=== PATIENT | female | born 1980 | race Caucasian/White ===

== ENCOUNTER 2018-12-01 15:06 | Emergency (ER) | payer SELFPAY ==
[~2018-12-01] VITALS: Ht 170.2 cm; Wt 69.6 kg
[2018-12-01 15:09] VITALS: BP 151/66
[2018-12-01] MEDS ORDERED: ZIPRASIDONE 20 MG INJ IM ONE (15:30)
--- NOTE | 2018-12-01 15:44 | NUR ---
PER DR. MENA PT HAS BEEN MEDICALLY CLEARED BY HIM. DR. MENA REQUESTING [facility] [employer] PT OUT OF THE DEPARTMENT STATING THAT THE PT IS VERBALLY ABUSIVE AND REFUSING ANY FURTHER MEDICAL ASSESSMENT. SECURITY MADE AWARE, AT BEDSIDE.
[2018-12-01 15:59] LABS: BASOPHILS # (AUTO) 0.05 x10^3/uL (0-0.1); BASOPHILS % (AUTO) 1 % (0-1); EOSINOPHILS # (AUTO) 0.23 x10^3/uL (0-0.4); EOSINOPHILS % (AUTO) 2 % (1-7); LYMPHOCYTES # (AUTO) 3.22 x10^3/uL (1-3.4); LYMPHOCYTES % (AUTO) 31 % (22-44); MD NO; MEAN CORPUSCULAR HEMOGLOBIN 25.4 pg (27.0-34.8); MEAN CORPUSCULAR HGB CONC 32.3 g/dL (32.4-35.8); MEAN CORPUSCULAR VOLUME 78.8 fL (80-100); MONOCYTES # (AUTO) 0.78 x10^3/uL (0.2-0.8); MONOCYTES % (AUTO) 7 % (2-9); NEUTROPHILS % (AUTO) 60 % (42-75); PLATELET COUNT 500 x10^3/uL (130-400); RED BLOOD COUNT 4.09 x10^6/uL (3.82-5.3); RED CELL DISTRIBUTION WIDTH 19.3 % (9.6-15.2)
[2018-12-01 16:11] LABS: ALBUMIN 3.9 g/dL (3.4-5.0); ANION GAP 7 mmol/L (5-15); CALCIUM 8.5 mg/dL (8.5-10.1); CHLORIDE 107 mmol/L (98-107); SALICYLATE LEVEL 1.8 mg/dL (2.8-20.0)
[2018-12-01 16:17] LABS: CREATININE 0.74 mg/dL (0.55-1.02)
[2018-12-01 16:18] LABS: ACETAMINOPHEN < 2 mcg/mL (10-30)
[2018-12-01 16:44] LABS: AMPHETAMINE SCREEN, URINE Positive (Negative); BARBITURATE SCREEN, URINE Negative (Negative); BENZODIAZEPINE SCREEN, URINE Negative (Negative); CANNABINOID SCREEN, URINE Negative (Negative); COCAINE SCREEN, URINE Negative (Negative); METHADONE SCREEN, URINE Negative (Negative); OPIATE SCREEN, URINE Negative (Negative)
== END 2018-12-01 16:23 | disposition home or self-care (01) ==
LOC: ED 16:12
DX: F28 Other psychotic disorder not due to a substance or known physiological condition (principal); F22 Delusional disorders
CPT/HCPCS: 36415; 80048; 80307; 80329; 82040; 84703; 85025; 99284; G0480